=== PATIENT | female | born 1995 | race Hispanic/Latino ===

== ENCOUNTER 2021-07-12 16:53 | Observation (INO) | payer OTHER ==
[2021-07-12 17:28] VITALS: BMI 27.9
[2021-07-12] MEDS ORDERED: HYDROcodone/Acetaminophen 5/325 mg Tablet PO PRN (20:22)
[2021-07-12] MEDS ORDERED: hydrALAZINE 20 MG/ML VIAL SLOW IVP PRN (20:22)
[2021-07-12] MEDS ORDERED: Ondansetron PF 4 MG/2 ML Vial IVP PRN (20:22)
[2021-07-12] MEDS ORDERED: Promethazine HCl 25 MG/ML VIAL IM PRN (20:22)
[2021-07-12] MEDS ORDERED: Ibuprofen 800 MG TAB PO PRN (20:22)
[2021-07-12] MEDS ORDERED: Butorphanol Tartrate 1 MG/ML VIAL SLOW IVP PRN (20:22)
[2021-07-12] MEDS ORDERED: Lidocaine 1% (PF) 30 ML VIAL SC PRN (20:22)
[2021-07-12] MEDS ORDERED: NS w/ Oxytocin 30 units 500 ML IV SCH (20:30)
[2021-07-12] MEDS ORDERED: Lactated Ringer's 1,000 ML IV SCH ×2 (20:30)
[2021-07-12 22:04] LABS: Hemoglobin 11.6 g/dL (12.0-15.5); Mean Corpuscular HGB CONC 33.7 g/dL (32.0-36.0); Mean Corpuscular Hemoglobin 30.4 pg (27.0-33.0); Mean Corpuscular Volume 90.3 fl (81.6-98.3); Mean Platelet Volume 11.8 fl (7.4-10.4); Platelet Count 227 10x3/uL (150-450); RBC Distribution Width 13.6 % (11.5-14.5); Red Blood Cell (RBC) Count 3.81 10x6/uL (3.90-5.03); White Blood Cell (WBC) Count 9.1 10x3/uL (3.5-10.5)
[2021-07-12 22:35] LABS: Hep B Surf Ag Non-Reactive S/CO (NonReactive); Syphilis Antibody Nonreactive (Nonreactive); Syphilis Antibody Index 0.12 S/CO (<1.00 Non-Reactive)
[2021-07-12 22:38] LABS: HBSAg Index 0.15 S/CO (0-0.99)
[2021-07-12 23:44] LABS: SARS-CoV-2 NAA Rapid Test Not Detected (NotDetected)
== END 2021-07-13 08:55 | disposition home health service (06) ==
LOC: CSHLD/OP 16:53 → INTOOBSV 20:00 → CSHLD 20:00
PROVIDERS: ADMIT Student in an Organized Health Care Education/Training Program; ATTEND Student in an Organized Health Care Education/Training Program
DX: O47.1 False labor at or after 37 completed weeks of gestation (principal); O36.5930 Maternal care for other known or suspected poor fetal growth, third trimester, not applicable or unspecified; O26.873 Cervical shortening, third trimester; Z3A.37 37 weeks gestation of pregnancy; Z20.822 Contact with and (suspected) exposure to COVID-19
CPT/HCPCS: 36415; 85027; 86780; 86850; 86900; 86901; 87340; 99285; G0378; U0002